=== PATIENT | female | born 1995 ===

== ENCOUNTER 2022-01-21 17:55 | Inpatient (IN) | payer OTHER ==
[~2022-01-21] VITALS: Ht 165.1 cm; Wt 80.5 kg
[2022-01-23] VITALS (18 sets, daily range): BP systolic 90–135; BP diastolic 47–97; PULSE 60–91; TEMP 97.5–98.2
--- NOTE | 2022-01-23 12:55 | NUR ---
PT AMBULATORY TO FLOOR FOR SCHEDULED CSECTION D/T BREECH PRESENATION. DENIES LOF AND CONTRACTIONS. REPORTS POSITIVE MOVEMENT. CATEGORY 1 EFM TRACING UPON ARRIVAL. PT'S VITAL SIGNS STABLE.
[2022-01-23] MEDS ORDERED: PRENATAL (13:20)
[2022-01-23 13:48] LABS: BASO # 0.1 K/mm3 (0.0-0.2); BASO % 0.5 % (0.0-2.0); EOS # 0.1 K/mm3 (0.0-0.7); EOS % 0.6 % (0.0-4.0); GRAN # 7.5 K/mm3 (1.4-6.5); GRAN % 69.5 % (42.2-75.2); HEMATOCRIT 39.4 % (37.0-47.0); HEMOGLOBIN 13.9 g/dl (12.5-16.0); LYMPH # 2.1 K/mm3 (1.2-3.4); LYMPH % 19.1 % (20.0-51.0); MEAN CELL VOLUME 93 fl (80.0-100.0); MEAN CORPUSCULAR HEMOGLOBIN 33 pg (27-31); MEAN CORPUSCULAR HGB CONC 35 g/dl (33.0-37.0); MEAN PLATELET VOLUME 9.9 fl (7.4-10.4); MONO # 1.1 K/mm3 (0.1-0.6); PLATELET COUNT 244 K/mm3 (130-400); RED BLOOD COUNT 4.26 M/mm3 (4.10-5.30); REDCELL DISTRIBUTION WIDTH-CV 11.9 % (11.5-14.5)
--- NOTE | 2022-01-23 14:00 | NUR ---
AT BEDSIDE WITH BEDSIDE ULTRASOUND, BREECH PRESENTATION CONFIRMED
[2022-01-23] MEDS ORDERED: PERCOCET 325 MG1 TA2 PO (14:09)
[2022-01-23] MEDS ORDERED: MOTRIN 800800 MG/TAB PO (14:09)
--- NOTE | 2022-01-23 16:13 | NUR ---
1613: PACU RECOVERY COMPLETE FOLLOWING PRIMARY CSECTION OF VIABLE FEMALE FOR BREECH PRESENTATION PER . FUNDUS REMAINS FIRM AT UMBILICUS. LOCHIA SCANT, NO CLOTS NOTED THROUGHOUT PACU STAY, VITAL SIGNS STABLE. PT FULLY ALERT AND ORIENTED, DENIES NAUSEA OR DIZZINESS. TRANSPORTED TO ROOM 209 VIA BED TO CONTINUE RECOVERY IN STABLE CONDITION. NO CONCERNS NOTED AT THIS TIME.
--- NOTE | 2022-01-23 18:15 | NUR ---
REPORT TO YEVGENIY MELLO AT THIS TIME
[2022-01-24 04:00] VITALS: BP 98/53; PULSE 80; TEMP 98
[2022-01-24 07:37] VITALS: BP 97/55; PULSE 65; TEMP 97.4
[2022-01-24 08:49] VITALS: BP 97/60; PULSE 76
--- NOTE | 2022-01-24 11:24 | NUR ---
Initial visit: Parents thanked Violin Teacher for offering congratulations and God's blessings for the of their daughter. Violin Teacher thanked family for choosing [facility].
[2022-01-24 16:14] VITALS: BP 93/53; PULSE 63; TEMP 97.8
[2022-01-24 22:35] VITALS: BP 100/55; PULSE 84; TEMP 98
[2022-01-25 08:00] VITALS: BP 102/69; PULSE 83; TEMP 97.6
== END 2022-01-25 15:50 | disposition home or self-care (01) | DRG 788 ==
LOC: OB 01-23 12:51
PROVIDERS: ADMIT Obstetrics & Gynecology
PROC: 10D00Z1 Extraction of Products of Conception, Low, Open Approach (ICD-10-PCS; principal; 2022-01-23)
DX: O32.8XX0 Maternal care for other malpresentation of fetus, not applicable or unspecified (principal); O34.03 Maternal care for unspecified congenital malformation of uterus, third trimester; Q51.28 Other and unspecified doubling of uterus; Z37.0 Single live birth; Z3A.40 40 weeks gestation of pregnancy; Z23 Encounter for immunization
CPT/HCPCS: J0690; J1100; J1885; J2405; J2590; J2765; J7120